=== PATIENT | male | born 1975 | race Caucasian/White ===

== ENCOUNTER 2023-08-23 05:17 | Emergency (ER) | payer BC ==
[2023-08-23 05:52] VITALS: TEMP 97.6
--- NOTE | 2023-08-23 06:19 | ERPHSYRPT ---
- History of Present Illness Time Seen by Provider: 08/23/23 05:45 Source: patient Exam Limitations: no limitations Patient Subjective Stated Complaint: left knee pain Triage Nursing Assessment: pt ambulated into ER/hobbling due to Left knee pain w hich began on 08/21/23. 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 Left knee is swollen and tender to touch. Physician History: Patient is a 48-year-old male presents to the emergency department for evaluation and treatment of pain to his left knee. Patient's left knee pain started 2 days ago. Pain has been progressive. No blunt trauma. 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 No fever. Pain worse with weightbearing and range of motion. The knee is swollen tender and warm. No history of the same. Symptoms are moderate in intensity. Patient took ibuprofen at approximately 3:30 AM. No significant improvement. Patient is otherwise generally healthy. He voices no other complaints or concerns at this time. Portions of this note were created with voice recognition technology. There may be grammatical, spelling, punctuation or sound alike errors Timing/Duration: day(s) (2 days ago) Severity: moderate Modifying Factors: Improves With: medication (Pain worse with movement and weightbearing) Associated Symptoms: denies symptoms Allergies/Adverse Reactions: No Known Drug Allergies Allergy (Unverified 08/23/23 05:33) Home Medications: No Reportable Medications [No Reported Medications] 08/23/23 [History] Hx Tetanus, Diphtheria Vaccination/Date Given: Yes Hx Influenza Vaccination/Date Given: No Hx Pneumococcal Vaccination/Date Given: No Immunizations Up to Date: No Travel Risk - International Travel Have you traveled outside of the country in past 3 weeks: No - Coronavirus Screening Are you exhibiting any of the following symptoms?: No Close contact with a COVID-19 positive Pt in past 14-21 Days: No - Vaccine Status Have you recieved a Covid-19 vaccination: No - Review of Systems Constitutional: No Symptoms, No Fever, No Chills Eyes: No Symptoms Ears, Nose, & Throat: No Symptoms Respiratory: No Symptoms, No Cough, No Dyspnea Cardiac: No Symptoms, No Chest Pain, No Edema, No Syncope Abdominal/Gastrointestinal: No Symptoms, No Abdominal Pain, No Nausea, No Vomiting, No Diarrhea Genitourinary Symptoms: No Symptoms, No Dysuria Musculoskeletal: No Symptoms, No Back Pain, No Neck Pain Skin: No Symptoms, No Rash Neurological: No Symptoms, No Dizziness, No Focal Weakness, No Sensory Changes Psychological: No Symptoms Endocrine: No Symptoms Hematologic/Lymphatic: No Symptoms Immunological/Allergic: No Symptoms All Other Systems: Reviewed and Negative - Past Medical History Pertinent Past Medical History: Yes Neurological History: No Pertinent History ENT History: No Pertinent History Cardiac History: No Pertinent History Respiratory History: No Pertinent History Endocrine Medical History: No Pertinent History Musculoskeletal History: Other GI Medical History: No Pertinent History History: No Pertinent History Psycho-Social History: No Pertinent History Male Reproductive Disorders: No Pertinent History Other Medical History: bruised bursa - Past Surgical History Past Surgical History: No - Social History Smoking Status: Former smoker Exposure to second hand smoke: No Drug Use: none Patient Lives Alone: Yes - Nursing Vital Signs Nursing Vital Signs: Initial Vital Signs Temperature 97.6 F 08/23/23 05:22 Pulse Rate 97 H 08/23/23 05:22 Respiratory Rate 18 08/23/23 05:22 Blood Pressure 196/107 08/23/23 05:22 O2 Sat by Pulse Oximetry 95 08/23/23 05:22 Pain Scale Pain Intensity 8 - Physical Exam General Appearance: no apparent distress, alert Eye Exam: PERRL/EOMI, eyes nml inspection Ears, Nose, Throat Exam: normal ENT inspection, moist mucous membranes Neck Exam: normal inspection, full range of motion Respiratory Exam: lungs clear, respiratory distress, airway intact Cardiovascular Exam: regular rate/rhythm, normal heart sounds, normal peripheral pulses Gastrointestinal/Abdomen Exam: soft, normal bowel sounds, No tenderness, No mass Back Exam: normal inspection, normal range of motion, No CVA tenderness, No vertebral tenderness Extremity Exam: normal inspection, normal range of motion, pelvis stable Neurologic Exam: alert, oriented x 3, cooperative, normal mood/affect, nml ce rebellar function (Patient ambulates with an antalgic gait pattern.), nml station & gait, sensation nml, No motor deficits Skin Exam: normal color, warm, dry, No rash Lymphatic Exam: No adenopathy SpO2 Interpretation: normal SpO2: 97 O2 Delivery: Room Air - Course Nursing assessment & vital signs reviewed: Yes - Radiology Exams Knee X-ray Interpretation: Interpreted by me (No fracture or dislocation. Knee effusion) Ordered Tests: Active Orders 24 hr Category Date Time Status KNEE (3 VIEWS) Stat Exams 08/23/23 05:24 Taken VENOUS UNILAT/LIMITED EXTREMIT [US] Stat Exams 08/23/23 06:15 Ordered BLOOD CULTURE Stat Lab 08/23/23 06:23 Received CBC W DIFF Stat Lab 08/23/23 06:25 Completed CMP Stat Lab 08/23/23 06:25 Received ESR [Erythrocyte Sedimentation Rate] Stat Lab 08/23/23 06:25 Received Medication Summary Generic Name Dose Route Start Last Admin Trade Name Freq PRN Reason Stop Dose Admin Vancomycin HCl 1 gm in 200 mls @ 125 mls/hr 08/23/23 06:26 Vancomycin 1 Gram/200 Ml Bag IV 08/23/23 08:01 STAT ONE Discontinued Medications Generic Name Dose Route Start Last Admin Trade Name Freq PRN Reason Stop Dose Admin Ceftriaxone Sodium/Dextrose 1 g in 50 mls @ 100 mls/hr 08/23/23 06:27 08/23/23 06:55 Rocephin 1 Gm-D5w 50 Ml Bag IV 08/23/23 06:56 100 mls/hr STAT STA 100 mls/hr Administration Ceftriaxone Sodium/Dextrose Confirm 08/23/23 06:51 Rocephin 1 Gm-D5w 50 Ml Bag Administered 08/23/23 06:52 Dose 1 g in 50 mls @ ud IV .STK-MED ONE Lidocaine HCl Confirm 08/23/23 06:25 Lidocaine Hcl 1% 20 Ml Mdv 20 Ml Ml Administered 08/23/23 06:26 Dose 5 ml .ROUTE .STK-MED ONE Lab/Rad Data: Laboratory Result Diagrams 08/23/23 06:25 Laboratory Results 08/23/23 Range/Units 06:25 WBC 7.9 (4.0-10.5) x10^3/uL RBC 4.67 (4.1-5.6) x10^6/uL Hgb 13.8 (12.5-18.0) g/dL Hct 41.8 L (42-50) % MCV 89.5 (78-100) fL MCH 29.6 (26-32) pg MCHC 33.0 (32-36) g/dL RDW 12.7 (11.5-14.0) % Plt Count 197 (150-450) x10^3/uL MPV 10.0 (7.5-11.0) fL Gran % 70.9 H (36.0-66.0) % Immature Gran % (Auto) 0.3 (0.00-0.4) % Nucleat RBC Rel Count 0.0 (0.00-0.1) % Eos # (Auto) 0.27 (0-0.5) x10^3/uL Immature Gran # (Auto) 0.02 (0.00-0.03) x10^3u/L Absolute Lymphs (auto) 1.44 (1.0-4.6) x10^3/uL Absolute Monos (auto) 0.53 (0.0-1.3) x10^3/uL Absolute Nucleated RBC 0.00 (0.00-0.01) x10^3u/L Lymphocytes % 18.2 L (24.0-44.0) % Monocytes % 6.7 (0.0-12.0) % Eosinophils % 3.4 (0.00-5.0) % Basophils % 0.5 (0.0-0.4) % Absolute Granulocytes 5.61 (1.4-6.9) x10^3/uL Basophils # 0.04 (0-0.4) x10^3/uL - Progress Progress: improved Progress Note: Joint aspiration procedure note. Time of procedure 6:45 AM Preprocedure diagnosis septic joint Aspiration performed by Dr. Avalos with the assistance of Kenn Herman RN . Physical exam revealed a left knee effusion that was warm and swollen. Site was prepped using Betadine and alcohol. The site was draped in the standard sterile fashion. Landmarks were identified using a surgical marker. The area was anesthetized using 1% lidocaine and a 27 gauge needle. Counterpressure on the left knee performed by RN. The joint space was entered using a 18-gauge needle. Approximately 20 cc of synovial fluid was aspirated from the lateral aspect of the left knee. The fluid appeared clear. Pending diagnostic studies include cell count crystals Gram stain and culture I was present for the entire procedure. There were no immediate or anticipated complications. I spent approximately 15 minutes with the patient. Patient tolerated procedure well. No complication. The involved extremity neurovascular tact distally post procedure. Portions of this note were created with voice recognition technology. There may be grammatical, spelling, punctuation or sound alike errors 08/23/23 06:51 48-year-old male presents to our emergency department for evaluation of left knee pain. On exam left knee is swollen tender and warm. No history of gout. The involved extremity is otherwise neurovascular tact distally. Septic joint workup initiated. Results pending. Currently the change of shift. Patient endorsed to incoming physician. Dr. Brown will follow-up on pending laboratory studies and pending ultrasound left knee rule out DVT Portions of this note were created with voice recognition technology. There may be grammatical, spelling, punctuation or sound alike errors Complexity problem addressed is moderate acute complicated No critical care time Complexity of data reviewed and analyzed is moderate. Test ordered test reviewed. Results analyzed and correlated clinically. Risk of complication and or risk of morbidity/mortality of patient management is high. Patient will likely require hospitalization for further evaluation and treatment for septic joint. Empiric antibiotics initiated Vital stable. Plan of care established for shared decision making. No social determinants of health present impede follow-up. Portions of this note were created with voice recognition technology. There may be grammatical, spelling, punctuation or sound alike errors 08/23/23 07:01 Counseled pt/family regarding: lab results, diagnosis, need for follow-up, rad results - Departure Clinical Impression: Joint effusion, Joint pain, Antalgic gait Condition: Stable Critical Care Time: No Referrals: PENELOPE DELCID MD [Primary Care Provider] - Follow up/PCP as directed Additional Instructions: Discharge/Care Plan QUINTONREGINA was seen on 08/23/23 in the Emergency Room. The patient was counseled regarding Diagnosis,Lab results, Imaging studies, need for follow up and when to return to the Emergency Room. Prescriptions given: Discharge Note I have spoken with the patient and/or caregivers. I have explained the patient's condition, diagnosis and treatment plan based on the information available to me at this time. I have answered the patient's and/or caregiver's questions and addressed any concerns. The patient and/or caregivers have as good understanding of the patient's diagnosis, condition and treatment plan as can be expected at this point. The vital signs have been stable. The patient's condition is stable and appropriate for discharge from the emergency department. The patient will pursue further outpatient evaluation with the primary care physician or other designated or consulting physician as outlined in the discharge instructions. The patient and/or caregivers are agreeable to this plan of care and follow-up instructions have been explained in detail. The patient and/or caregivers have received these instruction. The patient/and or caregivers are aware that any significant change in condition or worsening of symptoms should prompt an immediate return to this or the closest emergency department or call 911.
[2023-08-23] MEDS ORDERED: XYLOCAINE 1% HCL 20 ML MDV ONE (06:25)
[2023-08-23] MEDS ORDERED: VANCOMYCIN 1 GRAM/200 ML BAG 1 GM/200 ML PIGGYBACK IV ONE ×2 (06:26→07:24)
[2023-08-23] MEDS ORDERED: ROCEPHIN 1 Gm-D5w 50 ml Bag** 1 G/50 ML IVPB IV STA (06:27)
[2023-08-23 06:33] LABS: Absolute Neutrophil Ct (ANC) 5.61 x10^3/uL (1.4-6.9); BASOPHIL % 0.5 % (0.0-0.4); Basophil (Absolute #) 0.04 x10^3/uL (0-0.4); Eosinophil % 3.4 % (0.00-5.0); Eosinophil (Absolute #) 0.27 x10^3/uL (0-0.5); Hematocrit 41.8 % (42-50); Hemoglobin 13.8 g/dL (12.5-18.0); IMMATURE GRAN # 0.02 x10^3u/L (0.00-0.03); IMMATURE GRAN % 0.3 % (0.00-0.4); Lymphocyte (Absolute #) 1.44 x10^3/uL (1.0-4.6); Lymphocytes % 18.2 % (24.0-44.0); Mean Cell Volume 89.5 fL (78-100); Mean Corpuscular Hemoglobin 29.6 pg (26-32); Monocyte (Absolute #) 0.53 x10^3/uL (0.0-1.3); Monocytes % 6.7 % (0.0-12.0); Neutrophil % 70.9 % (36.0-66.0); Platelet Count 197 x10^3/uL (150-450); Red Blood Count 4.67 x10^6/uL (4.1-5.6); Red Cell Distribution Width 12.7 % (11.5-14.0); White Blood Count 7.9 x10^3/uL (4.0-10.5)
[2023-08-23] MEDS ORDERED: ROCEPHIN 1 Gm-D5w 50 ml Bag** 1 G/50 ML IVPB IV ONE (06:51)
[2023-08-23 07:14] LABS: BODY FLUID CELL COUNT RBC 0.001 x10^6u/L; BODY FLUID CELL COUNT WBC 0.923 x10^3u/L
[2023-08-23 07:17] LABS: BF CLARITY CLEAR (CLEAR); BF SPECIMEN TYPE SYNOVIAL; BF-COLOR XANTHROCHORMIC (COLORLESS)
[2023-08-23 08:35] LABS: Creatinine 1 0.8 mg/dL (0.66-1.25); EST GLOMERULAR FILTRATION RATE 108.5 ML/MIN
[2023-08-23 08:36] LABS: ALBUMIN 3.6 g/dL (3.5-5.0); BILIRUBIN,TOTAL 0.47 mg/dL (0.2-1.3); Potassium 4.2 mmol/L (3.5-5.1); Total Protein 7.2 g/dL (6.3-8.2)
[2023-08-23 08:38] LABS: ANION GAP 12.2 MEQ/L (5-15)
--- NOTE | 2023-08-23 08:40 | XRAY ---
Indication: Pain. Two-dimensional sonogram and color Doppler imaging of the major venous vessels of the left leg performed. Comparison: None No thrombus seen in the examined deep venous vessels of the left leg including greater saphenous vein. Veins demonstrate normal compressibility. Venous waveforms are normal with and without augmentation. Impression: Left leg negative for DVT.
--- NOTE | 2023-08-23 09:01 | XRAY ---
Indication: Pain. Limited range of motion. No known injury. Comparison: None 3 view right knee demonstrates tiny medial condyle bone island and small nonspecific effusion. No other bony, articular, or soft tissue abnormalities.
[2023-08-23 10:25] VITALS: RESP 17
[2023-08-23 11:03] VITALS: BP 165/114; PULSE 94; O2SAT 99
== END 2023-08-23 11:45 | disposition home or self-care (01) ==
LOC: ED 05:17
DX: M70.42 Prepatellar bursitis, left knee (principal); M25.462 Effusion, left knee; M25.562 Pain in left knee; R26.2 Difficulty in walking, not elsewhere classified; Z28.310 Unvaccinated for COVID-19
CPT/HCPCS: 36415; 73562; 80053; 85025; 85652; 86140; 87040; 87070; 87075; 87205; 89051; 89060; 93971; 99284; J0696; J3370